=== PATIENT | male | born 1940 | race Caucasian/White ===

== ENCOUNTER 2016-12-19 14:23 | Observation (INO) | payer OTHER ==
[~2016-12-19] VITALS: Ht 172.7 cm; Wt 125.5 kg
[~2016-12-19 14:23] MED LIST: ALLOPURINOL100 MG PO; ASPERDRINK81 MG PO; ASPIR-LOW81 MG PO; ASPIR-TRIN325 M1 PO; Aspirin E.C. PO; CARVEDILOL25 MG PO; COLCHICINE,COL0.6 MG PO; COMBIVENT RESPIM4 GM IH; CRESTOR20 MG PO; Combivent IH; Coreg PO; DOXYCYCLINE HY100 M3 PO; DULERA 200 MCG/13 GM IH; ELIQUIS5 MG PO; GLUCOVANCE 51 TABLET PO; GLYBURIDE5 MG PO; JANUVIA100 MG PO; K-DUR20 MEQ PO; LANTUS 3 M100 UNITS/ SC; LANTUS 3 M100 UNITS1 SC; LASIX80 MG PO; LISINOPRIL40 MG PO; Lasix PO; POTASSIUM CHLO20 ME2 PO; Pradaxa PO; ROXICODONE5 MG PO; SKIN TREATMENT225 GM TP; TRAMADOL HCL50 MG PO; TYLENOL EXTRA500 MG PO; VITAMIN D2000 UNI1 PO; Vitamin D PO; XARELTO20 MG PO; ZESTRIL,PRINIVI10 M1 PO; [UNRECOGNIZED DRUG - OTHER]
[2016-12-19 15:59] LABS: BASOPHIL COUNT 0.1 K/uL (0-0.1); EOSINOPHIL (%) 1.9 % (0-5); EOSINOPHIL COUNT 0.2 K/uL (0-0.3); HEMATOCRIT 41.7 % (38.0-50.0); IMMATURE GRANULOCYTE (%) 1.1 % (0.0-0.7); IMMATURE GRANULOCYTE COUNT 0.1 K/uL; INSTRUMENT ABS NEUTROPHIL CT 7.6 K/uL; MCHC 30.7 G/DL (30.0-36.0); MCV 97.7 FL (86-99); MONOCYTE (%) 12.9 % (3-12); MONOCYTE COUNT 1.3 K/uL (0-0.8); NEUTROPHIL COUNT 7.6 K/uL (1.8-6.4); PLATELET COUNT 202 K/uL (156-360); RBC DIS.WIDTH-CV 13.9 % (11.8-14.6); RBC DIS.WIDTH-SD 49.7 % (39-53); RED BLOOD COUNT 4.27 M/uL (4.00-5.50); WHITE BLOOD COUNT 10.3 K/uL (4.1-10.2)
[2016-12-19 16:06] LABS: INTER. NORMALIZED RATIO 1.5; PROTHROMBIN TIME 17.1 SEC (10.2-12.9)
[2016-12-19 16:08] LABS: CHLORIDE 97 mEq/L (99-109); POTASSIUM 4.7 mEq/L (3.7-5.4); SODIUM 140 mEq/L (136-147)
[2016-12-19 16:09] LABS: MAGNESIUM 2.3 mg/dL (1.3-2.7); PTT 37.9 SEC (25-37)
[2016-12-19 16:10] LABS: GLUCOSE 122 mg/dL (70-99)
[2016-12-19 16:11] LABS: ANION GAP 9 MEQ/L (2-14)
[2016-12-19 16:14] LABS: GFR ESTIMATE (CALCULATED) 39 mL/min/; UREA NITROGEN (BUN) 39 mg/dL (9-23)
[2016-12-19 17:16] LABS: TROP-I INTERPRETATION NEGATIVE; TROPONIN-I 0.03 ng/mL (0.0-0.30)
[2016-12-19 17:58] LABS: ADD MIUA? NO; BILIRUBIN NEGATIVE; BLOOD NEGATIVE; COLOR YELLOW ((YELLOW)); GLUCOSE (STRIP) NEGATIVE; KETONES NEGATIVE; LEUKOCYTES NEGATIVE; NITRITE NEGATIVE; PROTEIN (STRIP) NEGATIVE; SPECIFIC GRAVITY 1.013 (1.000-1.030); UCUL ADDED? NO
[2016-12-19] MEDS ORDERED: LASIX40 MG PO (19:00)
[2016-12-19] MEDS ORDERED: LANTUS 3 M100 UNITS1 SC (19:03)
[2016-12-19] MEDS ORDERED: NOVOLOG PE100 UNITS/ SC (19:07)
[2016-12-19] MEDS ORDERED: ANORO ELLIPTA1 EACH IH (19:08)
[2016-12-19 19:25] VITALS: BP 177/81
[2016-12-19 22:06] LABS: Estimated Average Glucose 194 mg/dL (70-123); HEMOGLOBIN A1c (GLYCOHEMOGLOB) 8.4 % HGB (Below 5.7)
[2016-12-19 22:33] LABS: POINT-OF-CARE METER ID UU14162513
[2016-12-20 00:10] VITALS: BP 129/61
[2016-12-20 00:26] LABS: TROP-I INTERPRETATION NEGATIVE; TROPONIN-I 0.04 ng/mL (0.0-0.30)
[2016-12-20 03:42] VITALS: BP 120/69
[2016-12-20 05:52] LABS: HEMATOCRIT 39.1 % (38.0-50.0); MCH 29.3 PG (29.0-34.0); MCHC 29.9 G/DL (30.0-36.0); MEAN PLAT.VOLUME 9.3 uM^3 (9.0-12.4); PLATELET COUNT 212 K/uL (156-360); RBC DIS.WIDTH-CV 13.9 % (11.8-14.6); RBC DIS.WIDTH-SD 50.1 % (39-53); RED BLOOD COUNT 3.99 M/uL (4.00-5.50); WHITE BLOOD COUNT 10.1 K/uL (4.1-10.2)
[2016-12-20 06:16] LABS: ANION GAP 7 MEQ/L (2-14); CHLORIDE 97 MEQ/L (99-109); GFR ESTIMATE (CALCULATED) 42 mL/min/; GLUCOSE 103 mg/dL (70-99); SAMPLE HEMOLYSIS CHECK 0; SAMPLE ICTERIC CHECK 0; SAMPLE LIPEMIA CHECK 0; SODIUM 143 MEQ/L (136-147); UREA NITROGEN (BUN) 38 mg/dL (9-23)
[2016-12-20 07:30] VITALS: BP 130/72
[2016-12-20 09:28] LABS: POINT-OF-CARE METER ID UU14162513
[2016-12-20 10:29] LABS: HEMATOCRIT 39.9 % (38.0-50.0); MCH 29.9 PG (29.0-34.0); MCHC 30.3 G/DL (30.0-36.0); MCV 98.5 FL (86-99); MEAN PLAT.VOLUME 9.3 uM^3 (9.0-12.4); PLATELET COUNT 204 K/uL (156-360); RBC DIS.WIDTH-CV 14.1 % (11.8-14.6); RED BLOOD COUNT 4.05 M/uL (4.00-5.50); WHITE BLOOD COUNT 9.5 K/uL (4.1-10.2)
[2016-12-20 10:54] LABS: ANION GAP 6 MEQ/L (2-14); CHLORIDE 96 MEQ/L (99-109); GFR ESTIMATE (CALCULATED) 42 mL/min/; POTASSIUM 4.4 MEQ/L (3.7-5.4); SAMPLE HEMOLYSIS CHECK 1; SAMPLE ICTERIC CHECK 0; SAMPLE LIPEMIA CHECK 0; SODIUM 141 MEQ/L (136-147); UREA NITROGEN (BUN) 40 mg/dL (9-23)
[2016-12-20 10:56] LABS: GLUCOSE 191 mg/dL (70-99)
[2016-12-20 11:12] VITALS: BP 141/64
[2016-12-20 12:19] LABS: POINT-OF-CARE METER ID UU13113831
[2016-12-20] MEDS ORDERED: COMBIVENT RESPIM4 GM IH (13:50)
[2016-12-20 13:52] LABS: TROP-I INTERPRETATION NEGATIVE; TROPONIN-I 0.03 ng/mL (0.0-0.30)
[2016-12-20] MEDS ORDERED: PERCOCET 2.51 TABLET PO (14:15)
== END 2016-12-20 15:32 | disposition home or self-care (01) ==
LOC: EME 14:23 → 5WEST 18:31 → EDOF 18:31 → ENRESERV 18:34 → 5WEST 19:25
PROVIDERS: Emergency Medicine; Hospitalist; Physician Assistant Medical
DX: R06.09 Other forms of dyspnea (principal); M54.5 Low back pain; I12.9 Hypertensive chronic kidney disease with stage 1 through stage 4 chronic kidney disease, or unspecified chronic kidney disease; E11.22 Type 2 diabetes mellitus with diabetic chronic kidney disease; N18.3 Chronic kidney disease, stage 3 (moderate); M79.89 Other specified soft tissue disorders; E66.01 Morbid (severe) obesity due to excess calories; Z68.41 Body mass index [BMI] 40.0-44.9, adult; I48.1 Persistent atrial fibrillation; Z79.01 Long term (current) use of anticoagulants; G47.33 Obstructive sleep apnea (adult) (pediatric); Z91.19 Patient's noncompliance with other medical treatment and regimen; Z86.73 Personal history of transient ischemic attack (TIA), and cerebral infarction without residual deficits; Z98.890 Other specified postprocedural states; J44.9 Chronic obstructive pulmonary disease, unspecified; Z99.81 Dependence on supplemental oxygen; I25.10 Atherosclerotic heart disease of native coronary artery without angina pectoris; Z95.1 Presence of aortocoronary bypass graft; I27.2 Other secondary pulmonary hypertension; I65.29 Occlusion and stenosis of unspecified carotid artery; I87.2 Venous insufficiency (chronic) (peripheral); M19.90 Unspecified osteoarthritis, unspecified site; Z79.4 Long term (current) use of insulin; Z79.82 Long term (current) use of aspirin
CPT/HCPCS: 71010; 72131; 80048; 80048 91; 81003; 82948; 83036; 83735; 83880; 84484; 85025; 85027; 85610; 85730; 93005; 93970; 94640; 94760; 94799; 99202; 99281; 99284; G0378; J1815; J1940